=== PATIENT | male | born 1995 | race Caucasian/White ===

== ENCOUNTER 2023-05-15 18:33 | Emergency (ER) | payer BC ==
[~2023-05-15] VITALS: Ht 167.6 cm; Wt 70.3 kg
[2023-05-15 18:42] VITALS: BP_SYST 122
[2023-05-15] MEDS ORDERED: KETOROLAC TROMETHAMINE 60 MG/2 ML VIAL IM ONE (19:00)
--- NOTE | 2023-05-15 19:30 | NUR ---
PT BIBS WITH C/O CYST TO POST RIGHT EAR, CYST IS SWOLLEN, RED, NO FLUID VISIBLY LEAKING. REPORTS PAIN 4/10. DENIES FEVER.
--- NOTE | 2023-05-15 19:40 | NUR ---
GENO SNYDER PERFORMING I&D
[2023-05-15] MEDS ORDERED: NAPR-690 PO (20:04)
--- NOTE | 2023-05-15 20:23 | NUR ---
Patient given written and verbal discharge instructions and verbalizes understanding. ER MD discussed with patient the results and treatment provided. Patient in stable condition. ID arm band removed. Rx of NAPROXEN given. Patient educated on pain management and to follow up with PMD. Pain Scale 0/10. Opportunity for questions provided and answered. Medication side effect fact sheet provided.
== END 2023-05-15 20:23 | disposition home or self-care (01) ==
LOC: SED 18:33
DX: H60.01 Abscess of right external ear (principal); H93.8X1 Other specified disorders of right ear; Z79.899 Other long term (current) drug therapy
CPT/HCPCS: 69000; 99283; 96372; J1885